=== PATIENT | male | born 1975 | race Caucasian/White ===

== ENCOUNTER 2017-01-21 | Inpatient (IN) | payer BC ==
[~2017-01-21] VITALS: Ht 195.6 cm; Wt 113.4 kg
--- NOTE | ~2017-01-21 | PA ---
Unit #: [id number] #: [id number] Patient: BRENNA AGUILAR [id number] [facility] [address] [place] [address] [id number] I MR#: [id number] NAME: BRENNA AGUILAR ROOM: P181 Age: 42 Sex: M Admission Date: 01/21/2017 : 1975 Date of Assessment: 01/21/2017 Attending Physician: Edward Calix M.D. Admitting Physician: Edward Calix M.D. Primary Care Physician: Faby Lockwood M.D. PSYCHIATRIC ASSESSMENT DATE OF SERVICE 01/21/2017 IDENTIFYING DATA Mr. Aguilar is a 42-year-old white male, who is a resident of [place], [place], and is known to us from previous encounter, was self-referred to the hospital on a voluntary basis. CHIEF COMPLAINT "I've been drinking a pint of vodka daily and I hope to detox from opioids." HISTORY OF PRESENT ILLNESS Mr. Aguilar is a 42-year-old white male with a history of substance abuse and dependence, who was self-referred to the hospital. Upon presentation, he stated that he has been drinking a pint of vodka on a daily basis and occasionally a few beers and reports that he hopes to detox from opioids as he stated that he has been using half a gram a day via snorting it. He reports that he is having difficulty sleeping and eating and has been using heroin daily for approximately 3 months and does endorse significant consequences because of his addiction with increasing depression, anxiety, irritability, difficulty functioning and performing activities of daily living, and also expressed feelings of hopelessness and helplessness, but he denies any suicidal ideations, intent, or plan, and as such, recommendation for an inpatient level of care for detoxification was made. The patient was stepped up to the inpatient unit. SUBSTANCE ABUSE HISTORY The patient reports a history of alcohol and opioid abuse. He reports that he has been drinking a pint of vodka on a daily basis and has been using half a gram of heroin daily via snorting it. PAST PSYCHIATRIC HISTORY The patient denies any history of inpatient or outpatient psychiatric or chemical dependency treatment. Review of the medical records indicates currently he is not active in any treatment program and is not seeing a psychiatrist and is not taking any psychotropic medications. PAST MEDICAL HISTORY Hypertension, diabetes mellitus, and gout. ALLERGIES No known medication allergies. Unit #: [id number] #: [id number] Patient: BRENNA AGUILAR CURRENT MEDICATIONS None. PERSONAL AND SOCIAL HISTORY A 42-year-old white male, who reports that he is and lives at home with his and has a fairly decent social support system. MENTAL STATUS EXAMINATION Middle-aged white male, who was casually dressed with a fair personal hygiene and appears to be in no acute distress or discomfort. He was awake and alert on interaction with intact orientation to time, place, and person. His mood was anxious and depressed with a congruent affect. His speech is slow and restricted in content. His thought processes were disorganized with some looseness of associations though he denies any suicidal or homicidal ideations. His insight and judgment remain significantly impaired. DIAGNOSTIC IMPRESSION Psychiatric: Major depressive disorder, recurrent, moderate, without psychotic features. Opioid dependence, moderate, in acute withdrawals. Alcohol dependence, moderate, in acute withdrawal. Medical: Hypertension, diabetes mellitus, gout. Stressors: Moderate psychosocial stressors. TREATMENT PLAN 1. The patient has presented with a history of mood disorder and substance abuse and has been decompensating and will need inpatient hospitalization for detoxification and safety and stabilization. We will start him on detox protocol. We will closely monitor for any worsening withdrawal symptoms. 2. Supportive therapy was provided to the patient. 3. Safe, structured, and nourishing environment will be provided. ESTIMATED LENGTH OF STAY 5 to 7 days. ABILITY TO HELP SELF Limited. WILLINGNESS TO HELP SELF The patient appears to be willing to help self. STRENGTHS 1. Communicative. 2. Cooperative. PROBLEMS 1. Chronic dysphoric symptoms. 2. Poor social support system. DISCHARGE CRITERIA This will be contingent upon the patient's ability to show resolution of his depression and anxiety and his ability to go through detox without having any significant withdrawal symptoms. Unit #: [id number] #: [id number] Patient: BRENNA AGUILAR Dictated by..Rashard Hearn/shaggy TD: 01/22/2017 08:01 JOB #: [id number] PSYCHIATRIC ASSESSMENT Page 1 of 1 X Edward Calix MD PSYCHIATRIC ASSESSMENT
--- NOTE | ~2017-01-21 | CO ---
Unit #: [id number] #: [id number] Patient: BRENNA AGUILAR [id number] [facility] [address] [place] [address] [id number] I MR#: [id number] NAME: BRENNA AGUILAR ROOM: P181 Age: 42 Sex: M Admission Date: 01/21/2017 : 1975 Attending Physician: Edward Calix M.D. Primary Care Physician: Faby Lockwood M.D. Consultation Date: 01/21/2017 CONSULTATION REPORT Brenna is 42-year-old with history of gout. He was seen for his admission H and P on 01/21/2017. This was addressed. Please see H and P dated 01/21/2017. Dictated by... Janis Cummins P.A.-C. for Rashard Anthony/shaggy TD: 01/21/2017 21:46 JOB #: [id number] CONSULTATION REPORT Page 1 of 1 X Janis Cummins CONSULTATION REPORT
--- NOTE | ~2017-01-21 | PN ---
Unit #: [id number] #: [id number] Patient: BRENNA AGUILAR [id number] [facility] [address] [place] [address] [id number] MR#: [id number] NAME: BRENNA AGUILAR ROOM: P181 Age: 42 Sex: M Admission Date: 01/21/2017 : 1975 Attending Physician: Edward Calix M.D. Admitting Physician: Edward Calix M.D. Primary Care Physician: Rashard Dudley PROGRESS NOTES DATE OF SERVICE 01/22/2017 DISCUSSION Mr. Aguilar is a 42-year-old white male who was seen today. Chart was reviewed and case was discussed with the staff. He has been anxious, withdrawn, and rather seclusive to himself. Meanwhile, he has been cooperative with the treatment recommendations and has been taking the medications and tolerating them fairly well with no reported side effects. MENTAL STATUS EXAMINATION Middle-aged white male who is casually dressed with fair personal hygiene, appears to be in slight distress or discomfort. He was awake and alert on interaction with intact orientation. His mood is anxious with congruent affect. He denies any suicidal or homicidal ideations and also denies any auditory or visual hallucinations. His insight and judgment remain slightly impaired. TREATMENT PLAN 1. We will continue him on his current medications and detox protocol. We will monitor his response to the medications and make further adjustments as needed. 2. We will continue to follow up. Dictated by... Rashard Kenny/moessg TD: 01/22/2017 10:19 JOB #: [id number] Unit #: [id number] #: [id number] Patient: BRENNA AGUILAR PROGRESS NOTES Page 1 of 1 X Edward Calix MD PROGRESS NOTE
--- NOTE | ~2017-01-21 | HP ---
Unit #: [id number] #: [id number] Patient: BRENNA AGUILAR [id number] [facility] [address] [place] [address] [id number] I MR#: [id number] NAME: BRENNA AGUILAR ROOM: P171 Age: 42 Sex: M Admission Date: 01/21/2017 : 1975 Attending Physician: Edward Calix M.D. Admitting Physician: Edward Calix M.D. Primary Care Physician: Faby Lockwood M.D. HISTORY AND PHYSICAL HISTORY OF PRESENT ILLNESS Brenna is a 42 year old admitted to [facility] [place] [facility] because of his polysubstance abuse which includes alcohol and opioids. He snorts heroin. PAST MEDICAL HISTORY 1. Long history of alcohol abuse. 2. History of opioid abuse to include snorting heroin. 3. Obesity. 4. History of gout. PAST SURGICAL HISTORY Nothing reported. ALLERGIES No known drug allergies. SOCIAL HISTORY He smokes less than 1 pack per day. Drinks up to a pint of liquor on a daily basis. Admits to a long history of opioid abuse to include heroin. FAMILY HISTORY Medically noncontributory. REVIEW OF SYSTEMS CONSTITUTIONAL: No fever or chills. HEENT: Denies any sore throat, ear pain or runny nose. CARDIOVASCULAR: Denies chest pain, irregular heart rhythm or palpitations. CHEST: Denies shortness of breath or cough. No hemoptysis. GASTROINTESTINAL: Denies nausea, vomiting, diarrhea or chronic constipation. ENDOCRINE: Denies history of increased thirst or urination. No recent significant weight loss or gain. GENITOURINARY: Denies dysuria, frequency, or hematuria. SKIN: Denies any rashes. HEMATOLOGIC: Denies history of increased bleeding or bruising. MUSCULOSKELETAL: Denies any hot, swollen joints. No generalized muscle pain. NEUROLOGIC: Denies problems with vision or speech. No frequent, severe headaches. No numbness, tingling or weakness in any extremities. Denies loss of bladder or bowel control. CURRENT MEDICATIONS Detox protocol. Unit #: [id number] #: [id number] Patient: BRENNA AGUILAR PHYSICAL EXAMINATION GENERAL: Alert, obese, in no apparent distress. VITAL SIGNS: Blood pressure 122/68, heart rate 84, respirations 16, temperature 98.6. WEIGHT: 250. HEIGHT: 6 feet 5 inches. SKIN: Warm and dry without rash or lesion. HEENT: Normocephalic. TMs not viewed. Oral and nasal passages clear. Conjunctivae clear. PERRLA. EOMs intact. NECK: Supple without lymphadenopathy or thyromegaly. HEART: Regular rate and rhythm without murmur. LUNGS: Clear. ABDOMEN: Soft, nontender. : Not done. EXTREMITIES: No evidence of cyanosis, clubbing or edema. Moves all without focal deficit. NEUROLOGICAL: Grossly within normal limits. Cranial Nerves: II: Visual mckinley are intact. III, IV AND : Extraocular movements are intact. Pupils are equal, round and reactive to light. V: Facial sensation is grossly normal. VII: Facial movements and expression are normal. VIII: Auditory acuity grossly intact. IX, X: Uvula is midline. Phonation is normal. XI: Patient shrugs shoulders and turns head normally. XII: Tongue protrudes in the midline. Sensory and Motor Function: Sensory and motor sensation is grossly normal. Motor: moves all extremities well. Coordination: Gait is normal. Deep Tendon Reflexes: Intact. IMPRESSION 1. Psychiatric admission. 2. History of gout. He has no complaints at this time. RECOMMENDATIONS PSYCHIATRIC: Per psychiatrist. MEDICAL: 1. See no contraindication to participate in facility's activities. 2. Detox per protocol. 3. Continue Motrin for any complaints of pain. MEDICAL PROGNOSIS Good. MEDICAL CONDITION Stable. Dictated by... Janis Cummins P.A.-C. for Rashard Anthony/karena TD: 01/21/2017 21:45 JOB #: [id number] Unit #: [id number] #: [id number] Patient: BRENNA AGUILAR HISTORY AND PHYSICAL Page 1 of 1 X Janis Cummins HISTORY AND PHYSICAL
--- NOTE | ~2017-01-21 | PN ---
Unit #: [id number] #: [id number] Patient: BRENNA AGUILAR [id number] [facility] [address] [place] [address] [id number] I MR#: [id number] NAME: BRENNA AGUILAR ROOM: P175 Age: 42 Sex: M Admission Date: 01/21/2017 : 1975 Attending Physician: Edward Calix M.D. Admitting Physician: Edward Calix M.D. Primary Care Physician: Rashard Dudley PROGRESS NOTES DATE OF SERVICE: 01/25/2017 SUBJECTIVE Mr. Aguilar is a 42-year-old white male, who was seen today and chart was reviewed, and case was discussed with the staff. He has been anxious, withdrawn, and rather seclusive to himself. Meanwhile, he has been cooperative with treatment recommendation and has been taking medications and tolerating them fairly well with no reported side effects. MENTAL STATUS EXAMINATION Middle-aged white male, who was casually dressed with fair personal hygiene, appears to be in no acute distress or discomfort. He was awake and alert on interaction with intact orientation. His mood was anxious with a congruent affect. His speech was slow and restricted in content. He denies any suicidal or homicidal ideations. His insight and judgment remain slightly impaired. TREATMENT PLAN 1. We will continue him on his current medications and treatment protocol. We will monitor his response to medications and make further adjustments as needed. 2. We will continue to follow up. Dictated by... Rashard Kenny/shaggy TD: 01/27/2017 03:09 JOB #: [id number] [facility] PROGRESS NOTES Page 1 of 1 X Edward Calix MD X PROGRESS NOTE
--- NOTE | ~2017-01-21 | DS ---
Unit #: [id number] #: [id number] [facility]: [facility] [id number] [facility] [address] [place] [address] [id number] I MR#: [id number] NAME: BRENNA AGUILAR ROOM: [facility] Age: 42 Sex: M Admission Date: 01/21/2017 : 1975 Discharge Date: 01/26/2017 Attending Physician: Edward Calix M.D. Primary Care Physician: Faby Lockwood M.D. DISCHARGE SUMMARY IDENTIFYING DATA Mr. Aguilar is a 42-year-old white male, who was self-referred to the hospital. DISCHARGE DIAGNOSES Psychiatric: Opioid dependence, moderate, in acute withdrawals and opioid-induced mood disorder. Medical: Gout. Stressors: Mild psychosocial stressors. HISTORY OF PRESENT ILLNESS Please see initial psychiatric evaluation for details. PAST PSYCHIATRIC HISTORY Please see initial psychiatric evaluation for details. PAST MEDICAL HISTORY Please see initial psychiatric evaluation for details. HOSPITAL COURSE The patient was admitted to the adult psychiatric and chemical dependency unit at [facility] and was oriented to the hospital environment. Routine p.r.n. medications were initiated and he was started on the opioid detox protocol and was closely monitored. He was taking the medications regularly and was tolerating them fairly well and was able to show a decent and therapeutic response and was able to come out of the detox without any complications and was wanting to go home and was willing to continue treatment. DISCHARGE MEDICATIONS None. DISCHARGE CONDITION Stable. PROGNOSIS Guarded. Dictated by... Rashard Kenny/shaggy Unit #: [id number] #: [id number] Patient: BRENNA AGUILAR TD: 01/26/2017 16:57 JOB #: [id number] DISCHARGE SUMMARY Page 1 of 1 X Edward Calix MD X DISCHARGE SUMMARY
--- NOTE | ~2017-01-21 | DS ---
Unit #: [id number] #: [id number] Patient: [facility]ILAR [id number] [facility] [address] [place] [address] [id number] I MR#: [id number] NAME: BRENNA AGUILAR ROOM: 75 Age: 42 Sex: M Admission Date: 01/21/2017 : 1975 Discharge Date: 01/26/2017 Attending Physician: Edward Calix M.D. Primary Care Physician: Faby Lockwood M.D. DISCHARGE SUMMARY IDENTIFYING DATA Mr. Aguilar is a 42-year-old white male, who is a resident of [place], [place], and is known to me from previous encounter and was self-referred to the hospital on a voluntary basis. DISCHARGE DIAGNOSES Psychiatric: Major depressive disorder, recurrent, moderate, without psychotic features; opioid dependence, moderate, in acute withdrawals; and alcohol dependence, moderate, in acute withdrawals. Medical: Hypertension, diabetes mellitus, and gout. Stressors: Mild psychosocial stressors. HISTORY OF PRESENT ILLNESS Please see initial psychiatric evaluation for details. PAST PSYCHIATRIC HISTORY Please see initial psychiatric evaluation for details. PAST MEDICAL HISTORY Please see initial psychiatric evaluation for details. HOSPITAL COURSE The patient was admitted to the adult psychiatric and chemical dependency unit at [facility] and was oriented to the hospital environment. Routine p.r.n. medications were initiated, and he was started back on his home medications and medications were adjusted and he was started on the alcohol detox protocol. He was also seen to be having an episode of flare up of gout and medical consultation was requested. Meanwhile, he was cooperative with the treatment recommendations and was taking the medications regularly and was tolerating them fairly well and was able to come out of the detox without any complications and was willing to continue treatment on an outpatient basis and was denying any suicidal ideations, intent, or plan and was not seen to be a danger to self or anyone else, and as such, it was decided that he will be maintained on his current treatment protocol and will be discharged from the hospital. Recommend ongoing outpatient psychiatric and chemical dependency treatment. DISCHARGE MEDICATIONS None. DISCHARGE CONDITION Stable. Unit #: [id number] #: [id number] Patient: BRENNA AGUILAR PROGNOSIS Fair. Dictated by... Edward Calix M.D. IAA/modl TD: 01/26/2017 17:28 JOB #: [id number] DISCHARGE SUMMARY Page 1 of 1 X Edward Calix MD DISCHARGE SUMMARY
--- NOTE | ~2017-01-21 | PN ---
Unit #: [id number] #: [id number] Patient: BRENNA AGUILAR [id number] [facility] [address] [place] [address] [id number] I MR#: [id number] NAME: BRENNA AGUILAR ROOM: P175 Age: 42 Sex: M Admission Date: 01/21/2017 : 1975 Attending Physician: Edward Calix M.D. Admitting Physician: Edward Calix M.D. Primary Care Physician: Rashard Dudley PROGRESS NOTES DATE January 23, 2017 DISCUSSION Mr. Aguilar is a 42-year-old white male, with opiate dependence, who was seen today and chart was reviewed and the case was discussed with the staff. He has been anxious, withdrawn, and rather seclusive to himself. Meanwhile, he has been cooperative with the treatment recommendations, and he has been taking the medications and tolerating them fairly well with no reported side effects. MENTAL STATUS EXAMINATION Middle-aged white male, who was casually dressed with fair personal hygiene and appears to be in no acute distress or discomfort. He was awake and alert on interaction with intact orientation. His mood is anxious with a congruent affect. He denies any suicidal or homicidal ideations. His insight and judgment remain slightly impaired. TREATMENT PLAN 1. We will continue him on his current medications and treatment protocol, and will monitor his response to the medications, and make further adjustments as needed. 2. We will continue to followup. Dictated by... Rashard Kenny/simon TD: 01/25/2017 09:10 JOB #: [id number] Unit #: [id number] #: [id number] Patient: BRENNA AGUILAR PROGRESS NOTES Page 1 of 1 X Edward Calix MD PROGRESS NOTE
--- NOTE | ~2017-01-21 | PN ---
Unit #: [id number] #: [id number] Patient: BRENNA AGUILAR [id number] [facility] [address] [place] [address] [id number] I MR#: [id number] NAME: BRENNA AGUILAR ROOM: P175 Age: 42 Sex: M Admission Date: 01/21/2017 : 1975 Attending Physician: Edward Calix M.D. Admitting Physician: Edward Calix M.D. Primary Care Physician: Rashard Dudley NOTES DATE OF SERVICE: 01/24/2017 SUBJECTIVE Mr. Aguilar is a 42-year-old white male who was seen today and chart was reviewed, and case was discussed with the staff. He has been anxious, withdrawn, and rather seclusive to himself. Meanwhile, he has been cooperative with treatment recommendation and has been taking the medications and tolerating them fairly well with no reported side effects, though he reports that he is having a full blown episode of gout and therefore, he needs to be seen by therapist immediately. MENTAL STATUS EXAMINATION Young white male who was casually dressed with fair personal hygiene, appears to be in no acute distress or discomfort. He was awake and alert on interaction with intact orientation. His mood was anxious with a congruent affect. His speech was slow and goal directed. He denies any suicidal or homicidal ideations, and also denies any auditory or visual hallucinations. His insight and judgment remain slightly impaired. TREATMENT PLAN 1. We will continue him on his current medications and treatment protocol. We will monitor his response and make further adjustments as needed. 2. We will continue to follow up. Dictated by... Rashard Kenny/shaggy TD: 01/26/2017 22:15 JOB #: [id number] Unit #: [id number] #: [id number] Patient: BRENNA AGUILAR PROGRESS NOTES Page 1 of 1 X Edward Calix MD PROGRESS NOTE
--- NOTE | ~2017-01-21 | CO ---
Unit #: [id number] #: [id number] Patient: BRENNA AGUILAR [id number] [facility] [address] [place] [address] [id number] I MR#: [id number] NAME: BRENNA AGUILAR ROOM: P1 Age: 42 Sex: M Admission Date: 01/21/2017 : 1975 Attending Physician: Edward Calix M.D. Primary Care Physician: Faby Lockwood M.D. Consultation Date: 01/24/2017 CONSULTATION REPORT HISTORY OF PRESENT ILLNESS Brenna is a 42-year-old male, who has a history of gout. Last night, he started noticing that he is having some pain in his left toes. It is similar to the gout pain he has experienced in the past. This morning, the pain has worsened and he feels like it is starting to spread up his foot. He is having some difficulty with ambulation because of the pain. No numbness or tingling in his legs. No other complaints. PHYSICAL EXAMINATION CARDIAC: Regular rate and rhythm. No murmur, gallop, or rub. RESPIRATORY: Clear to auscultation bilaterally. MUSCULOSKELETAL: Mild redness and warmth in the lateral left toes with tenderness to palpation. ASSESSMENT AND PLAN Gout. We will begin colchicine 1.2 mg p.o. now and then in 1 hour 0.6 mg. Please notify, if symptoms are unresolved. Dictated by... Yessenia Marroquin/shaggy TD: 01/26/2017 02:12 JOB #: [id number] CONSULTATION REPORT Page 1 of 1 X TERRIE LOPES APRN X CONSULTATION REPORT
[2017-01-21 09:38] LABS: BASOPHIL% 0.5 % (0-2.5); EOSINOPHIL% 0.7 % (0.0-7.0); HEMOGLOBIN 13.4 gm/dL (13.0-16.0); LYMPHOCYTE# 2.8 X10e3 (1.0-3.5); LYMPHOCYTE% 38.8 % (17.0-45.0); MEAN CELL VOLUME 92.9 FL (83-96); MEAN CORPUSCULAR HEMOGLOBIN 31.9 PG (28-34); MEAN CORPUSCULAR HGB CONC 34.4 g/dL (30-36); MEAN PLATELET VOLUME 7.5 FL (6.5-11.5); MONOCYTE# 0.5 X10e3 (0-1.0); MONOCYTE% 7.2 % (3.0-12.0); NEUTROPHIL# 3.7 X10e3 (1.5-7.1); NEUTROPHIL% 52.8 % (40-75); PLATELET COUNT 176 X10e3 (140-420); RED BLOOD COUNT 4.19 X10e (3.90-5.60); RED CELL DISTRIBUTION WIDTH 13.8 % (11.0-15.5); WHITE BLOOD COUNT 7.1 X10e3 (4.0-10.5)
[2017-01-21 09:51] LABS: ALBUMIN SERUM 3.5 g/dL (3.5-5.0); BILIRUBIN,TOTAL 0.6 mg/dL (0.2-2.0); BUN/CREATININE RATIO 13.33; CALCIUM SERUM 8.7 mg/dL (8.4-10.2); CREATININE SERUM 0.6 mg/dL (0.6-1.4); GLOM FILT RATE Estimated 124.9 mL/min (>60); POTASSIUM 3.8 mmol/L (3.5-5.1); PROTEIN TOTAL SERUM 6.3 g/dL (6.0-8.3)
[2017-01-21 09:52] LABS: DIFF IND NO
[2017-01-22 10:11] LABS: URINE APPEARANCE CLEAR; URINE BILIRUBIN NEG (NEG); URINE BLOOD NEG (NEG); URINE COLOR YELLOW; URINE GLUCOSE NEG (NEG); URINE KETONE NEG (NEG); URINE LEUKOCYTE ESTERASE NEG (NEG); URINE NITRATE NEG (NEG); URINE PH 5.5 (5-8); URINE PROTEIN NEG (NEG); URINE SPECIFIC GRAVITY 1.016 (1.003-1.035); URINE UROBILINOGEN 0.2 MG/DL (NEG)
[2017-01-22 10:46] LABS: AMPHETAMINE NEG (NEG); BARBITURATES NEG (NEG); BENZODIAZEPINES NEG (NEG); COCAINE NEG (NEG); MARIJUANA NEG (NEG); OPIATES POS (NEG); TRICYCLIC ANTIDEPRESSANTS NEG (NEG); U METHADONE NEG (NEG)
== END 2017-01-26 09:40 | DRG 885 ==
LOC: P1E 03:13
PROVIDERS: Psychiatry & Neurology Psychiatry
PROC: HZ2ZZZZ Detoxification Services for Substance Abuse Treatment (ICD-10-PCS; principal; 2017-01-21)
DX: F33.1 Major depressive disorder, recurrent, moderate (principal); E11.8 Type 2 diabetes mellitus with unspecified complications; F10.239 Alcohol dependence with withdrawal, unspecified; F11.23 Opioid dependence with withdrawal; I10 Essential (primary) hypertension; M10.9 Gout, unspecified
CPT/HCPCS: 80053; 80307; 81003; 85025; 86592